=== PATIENT | female | born 1980 | race Caucasian/White ===

== ENCOUNTER 2025-02-04 13:08 | Outpatient (AMB) | payer OTHER, SELFPAY ==
--- NOTE | 2025-02-04 13:10 | MHC.PC.OV ---
Vital Signs 02/04/25 13:11 Height 5 ft 3 in Weight 103 lb 2 oz BMI 18.3 BP 124/80 Blood Pressure Location Lt brachial Position Sitting Respiration 16 Pulse 134 H Pulse Source Pulse Oximeter Temp 97.3 F Temp Source Temporal Artery Scan Pulse Oximetry (%) 97 Oxygen Delivery Method Room Air Intake Visit Reasons: annual exam - see comments Physical Geographer Required: No Accompanied by: Self / Same As Patient Allergies No Known Drug Allergies Allergy (Unknown, Verified 02/04/25 13:25) Unknown Medication List - Last Reconciled 02/04/25 by Jose Carlos Fragoso PA-C albuterol sulfate 1.25 mg/3ml inhaled every 6 hours PRN; 1.25 mg/3ml 30 days albuterol sulfate 90 mcg/actuation 2 puffs inhalation Q6H PRN buprenorphine-naloxone 8-2 mg 25 mg sublingual DAILY clonazepam 1 mg PO DAILY naloxone 4 mg/actuation intranasal DIRECTED nicotine 1 patch transdermal DAILY valacyclovir (Valtrex) 1,000 mg PO BID 7 days Tobacco use date assessed: 02/04/25 Dental Screening Dental Screen Date: 02/04/25 Did you have a dental visit in the last 12 months?: Yes Did you have a dental problem in the last 6 months where you did not have access to dental care?: No Was dental information given to patient?: Patient has dentist HPI annual exam - see comments HPI Details Patient is a 44-year-old female here today for routine annual physical Patient has a past medical history significant for tobacco use disorder, opiate dependence, COPD. .. Concern--> The patient reports joint pain that has been worsening over the past five years. 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 In her right hand, she has pain and swelling in two knuckles, which progresses to the point that she cannot close her hand by the end of a workday. She also has significant foot pain; a toe on one foot is bending over and rubbing, causing severe pain and purplish discoloration by the end of the day, to the point of needing to take time off from work. She uses ice for relief. .. Chronic constipation: The patient has a history of chronic constipation, which she believes is related to her Suboxone use, and for which she used milk of magnesia daily for about eight years. Her constipation has improved, and she now has a bowel movement every three days without using laxatives in the past month. She also reports significant unintentional weight loss, from 145-150 lbs down to a current weight of 103 lbs, which began during the stress of her parents' prolonged illness. She has a fear of overeating, leading her to eat small amounts and triggering nausea and vomiting if she feels she has eaten too much. .. Opiate dependence: Continues Subutex from a [place] [facility]. remains sober over the last 10 or so years.. .. Asthma: She reports her asthma is fairly stable with the use of albuterol nebulizer treatments on a p.r.n. basis along with a rescue inhaler as needed. She understands she needs to quit smoking in order to improve her asthma symptoms. She is now down to 8 cigarettes per day from 1 pack per day. . smoker: Have cut back on smoking ( report 10-15 cigs per day). She is interested in restarting nicotine replacement Colorectal cancer screening: willing to colonoscopy . DIRECTOR SUPPLY : Has upcoming appt With DIRECTOR SUPPLY Mammograms: needs mammo Vaccines: need Tdap, need flu vacc. Need PCV- declines all vaccines today [facility] Social History (Updated 02/04/25 @ 13:32 by Jose Carlos Fragoso PA-C) Housing: Apartment Alcohol intake: former Patient Tobacco Use Status: Current everyday Tobacco user Tobacco use type: Cigarette Cigarettes Per Day: 15 e-Cigarette/Vaping Use: Never Used service: No Current occupational status: employed Current occupation: House keeper e commerce marketing manager Cognitive needs: No Hearing needs: No Vision needs: No Questionnaire PHQ-9 Over the last 2 weeks, how often have you been bothered by any of the following problems? 1. Little interest or pleasure in doing things: several days 2. Feeling down, depressed, or hopeless: several days 3. Trouble falling or staying asleep, or sleeping too much: not at all 4. Feeling tired or having little energy: several days 5. Poor appetite or overeating: several days 6. Feeling bad about yourself - or that you are a failure or have let yourself or your family down: several days 7. Trouble concentrating on things, such as reading the newspaper or watching television: not at all 8. Moving or speaking so slowly that other people could have noticed. Or the opposite - being so fidgety or restless that you have been moving around a lot more than usual: not at all 9. Thoughts that you would be better off or of hurting yourself in some way: not at all Total score: 5 Depression Screening Interpretation: Positive Depression Screening Follow-up: Existing condition Depression Screening Done: Yes 29785 - PHQ-9 Billing: Patient declined-do not bill Source: Developed by Drs. Rico Mason, Kendra Bonilla, Fernie Rodriguez and colleagues, with an educational leslie from [employer] Thrive Questionnaire Date Thrive assessed: 05/04/24 I am a: Patient What is your living situation today?: I have a steady place to live Within the past 12 months, did the food you bought not last and you didn't have the money to get more?: Never true Within the past 12 months, did you worry whether your food would run out before you got money to buy more?: Sometimes True Do you have trouble paying for medicines?: No Do you have trouble getting transportation to medical appointments?: No Do you have trouble paying your heating and electricity bill?: Yes Do you have trouble taking care of your child, family member or friend?: No Do you have trouble with day-to-day activities such as bathing, preparing meals, shopping, managing finances, etc.?: No Are you currently unemployed and looking for a job?: No Are you interested in more education?: Yes Please select the resources that you would like help with: None Currently or been in a relationship where the following occur: No concerns reported THRIVE Score: 2 AUDIT C Alcohol Use Questionnaire (AUDIT-C) 1. How often do you have a drink containing alcohol?: Never 3. How often do you have six or more drinks on one occasion?: Never Total Score: 0 RISHABH-7 AMB Questionnaire RISHABH-7 Date RISHABH - 7 assessed: 06/26/21 Source: Developed by Drs. Rico Mason, Kendra Bonilla, Fernie Rodriguez and colleagues, with an educational leslie from [employer] Review of Systems Const Denies body aches, Denies chills, Denies excessive sweating, Denies fatigue, Denies fever(s) and Denies headache(s) Eyes Denies blurry vision ENT Denies dysphagia, Denies vertigo, Denies dizziness, Denies headache(s), Denies hearing loss and Denies tinnitus Card Denies chest pain, Denies chest pain with activity, Denies syncope, Denies irregular heart rhythm and Denies dyspnea Resp Denies chest congestion, Denies cough, Denies hemoptysis, Denies dyspnea and Denies wheezing GI Denies abdominal pain, Denies melena, Denies hematochezia, Denies coffee ground emesis, Denies dysphagia, Denies diarrhea, Denies nausea and Denies vomiting Denies urinary frequency, Denies dysuria, Denies urinary hesitancy and Denies urinary urgency Musc Denies arthralgias, Denies limited range of motion, Denies muscle cramps and Denies muscle weakness Skin/Breast Denies rash and Denies skin ulcer Neuro Denies Abnormal speech present, Denies confusion, Denies vertigo, Denies dizziness, Denies syncope, Denies headache(s), Denies memory loss and Denies seizure-like activity Psych Denies anxiety, Denies confusion, Denies depression, Denies memory loss, Denies panic attacks and Denies paranoia Endo Denies excessive sweating, Denies fatigue, Denies flushing, Denies polydipsia and Denies polyuria Aller/Immun Denies wheezing Physical exam (Primary Care) Vital Signs: Last Vital Signs Temp 97.3 F 02/04/25 13:11 Pulse 134 H 02/04/25 13:11 Resp 16 02/04/25 13:11 BP 124/80 02/04/25 13:11 Pulse Ox 97 02/04/25 13:11 Oxygen Delivery Method Room Air 02/04/25 13:11 BMI result Body Mass Index 18.3 Tobacco/Smoking Status: Tobacco use Status Tobacco use date assessed 02/04/25 02/04/25 13:19 Patient Tobacco Use Status Current everyday Tobacco 02/04/25 13:32 Tobacco use type Cigarette 02/04/25 13:32 e-Cigarette/Vaping Use Never Used 02/04/25 13:32 Are you ready to quit: Yes Tobacco cessation counseling provided: Yes Items discussed: Nicotine replacement Relapse Prevention: discussed the importance of a supportive environment, discussed negative mood or depression after quitting, weight gain after smoking is common and discussed dietary, exercise and/or lifestyle changes Number of minutes spent counselin CPT code: 18321 - 4-10 Minutes PHQ-9: PHQ-9 Score PHQ-9: Total score 5 02/04/25 14:06 Depression Screening Interpretation: Positive Depression Screening Follow-up: Existing condition Thrive Assessment: Date of Thrive Assessment Date Thrive assessed 05/04/24 02/04/25 13:19 Currently or been in a relationship where the following occur: No concerns reported Const Other: Appears thin General: cooperative, comfortable, no acute distress, alert and awake; No confusion Orientation/consciousness: oriented to person, oriented to place, patient oriented x3 and No confusion HENMT Head: Yes normocephalic Ears: external ears normal and TM's normal bilaterally Face and sinus: No sinus tenderness Mouth: Normal oral and palatal mucosa present and tongue normal Teeth and gingiva: dentition normal and gingiva normal Throat: Yes posterior oropharynx normal, Yes tonsils normal and Yes uvula midline Eyes Conjunctivae: conjunctivae normal Sclerae: sclerae normal Pupils: Equal, round and reactive pupils present EOM: EOMs intact bilaterally Direct Ophthalmoscopy: No no photophobia Neck Neck: Yes no lymphadenopathy, No tender and Yes no JVD Thyroid: Thyroid normal Carotids: no bruits Chest Chest palpation & inspection: no tenderness Resp Effort & Inspection: normal respiratory effort, no audible wheezes, not labored and no stridor Auscultation: no crackles, no rales, no rhonchi and no wheezes Cardio Jugular venous distension: no JVD Rate: regular rate, not bradycardic and not tachycardic Rhythm: regular rhythm Bruits: no carotid bruits Peripheral pulses: Peripheral pulses 2+ throughout GI Inspection: Yes normal to inspection, No abdominal wall ecchymosis and No visible herniation Palpation (GI): Soft to palpation, nontender, no guarding, not rigid and No hepatosplenomegaly present Auscultation: normoactive bowel sounds General: Yes no CVA tenderness Back/Spine/Pelvis Back: no CVA tenderness and No back tenderness Cervical Spine: cervical ROM normal Thoracic/Lumbar Spine: thoracic and lumbar spine normal to inspection, straight leg raise negative bilaterally, No thoraco-lumbar ROM limited and No lumbar spinal tenderness Skin Lesions: no lesions Rashes: no rashes Wounds: no wounds Neuro General: oriented to person, oriented to place, patient oriented x3, CN's II-XI intact bilaterally and No confusion Cranial nerves: Yes Equal, round and reactive pupils present and Yes Normal accommodation reflex present Cognition (Neuro): normal cognition Speech: No Abnormal speech present Gait exam (Neuro): Normal gait present Motor exam (neuro): 5/5 motor strength present throughout Extrem Right upper extremity: full ROM; no cyanosis Left upper extremity: full ROM; no cyanosis Right lower extremity: no edema Left lower extremity: no edema Psych Appearance: grossly normal Mental Status: mental status grossly normal Affect: normal affect Attitude: cooperative Thought process: Normal thought process present Coding Level of Care Code Est Pt Prev Care 40-64y([id number]) Diagnoses Annual physical exam Z00.00 H/O chronic hepatitis Z87.19 Uncomplicated opioid dependence F11.20 Substance use status: uncomplicated Screening for diabetes mellitus (DM) Z13.1 Left hand pain M79.642 Right hand pain M79.641 Foot callus L84 Screening mammogram, encounter for Z12.31 Weight loss R63.4 Smoker F17.200 Additional Codes Vital Signs *Quality* - CPT code: 73772 - 4-10 Minutes ([id number]) Assessment & Plan Assessment & Plan (1) Annual physical exam: Code(s): Z00.00 - Encounter for general adult medical examination without abnormal findings Category: Medical Plan: As per HPI (2) H/O chronic hepatitis: Code(s): Z87.19 - Personal history of other diseases of the digestive system Category: Medical Plan: Patient has a history of hepatitis-C that was treated many years ago, would like to recheck her viral load. (3) Opiate dependence: Code(s): F11.20 - Opioid dependence, uncomplicated Category: Medical Qualifiers: Substance use status: uncomplicated Qualified Code(s): F11.20 - Opioid dependence, uncomplicated Plan: Patient continues on Suboxone to a local Suboxone clinic. Has been sober from illicit opiates over the last 10 years. (4) Screening for diabetes mellitus (DM): Code(s): Z13.1 - Encounter for screening for diabetes mellitus Category: Medical Plan: As per HPI (5) Left hand pain: Code(s): M79.642 - Pain in left hand Category: Medical Plan: Regarding the patient's joint pain, an X-ray of her hand will be ordered to investigate the cause of her thumb and knuckle pain. A referral to Podiatry will be placed for evaluation of her foot pain. Blood work will be ordered to check for rheumatoid arthritis. The patient was advised of multiple treatment options, including OTC Voltaren cream, a possible prescription for an oral anti-inflammatory like meloxicam, referral to occupational therapy, and the possibility of a cortisone injection from a hand surgeon. (6) Right hand pain: Code(s): M79.641 - Pain in right hand Category: Medical Plan: As above (7) Foot callus: Code(s): L84 - Corns and callosities Category: Medical Plan: Patient appears to callus formation seen between the 1st and 2nd digit also has mild bunions. She would like to see a manufacturing manager for evaluation and treatment of her chronic for pains. (8) Screening mammogram, encounter for: Code(s): Z12.31 - Encounter for screening mammogram for malignant neoplasm of breast Category: Medical Plan: Needs mammogram (9) Weight loss: Code(s): R63.4 - Abnormal weight loss Category: Medical Plan: Will check some vitamin levels and a TSH to eval for any malnutrition. (10) Smoker: Code(s): F17.200 - Nicotine dependence, unspecified, uncomplicated Category: Social Hx Plan: For tobacco cessation, prescriptions for 14 mg and 7 mg nicotine patches will be sent to the pharmacy to allow for a step-down approach. Orders: Orders Complete Blood Count no Diff 02/04/25 Z13.1 - Encounter for screening for diabetes mellitus Rheumatoid Factor 02/04/25 M79.642 - Pain in left hand Cyclic Citrullinated Peptide 02/04/25 M79.642 - Pain in left hand Vitamin B12 and Folate 02/04/25 E53.8 - Deficiency of other specified B group vitamins, R63.4 - Abnormal weight loss Comprehensive [place]. Panel Fast 02/04/25 Z13.1 - Encounter for screening for diabetes mellitus XR hand LT 2V 02/04/25 M79.642 - Pain in left hand Erythrocyte Sedimentation Rate 02/04/25 M79.642 - Pain in left hand TSH reflex Free T4 02/04/25 R63.4 - Abnormal weight loss Vitamin D 25-OH Total 12/04/25 R63.4 - Abnormal weight loss IRON PROFILE 02/04/25 D50.9 - Iron deficiency anemia, unspecified, R63.4 - Abnormal weight loss Hepatitis C Viral Load 02/04/25 Z87.19 - Personal history of other diseases of the digestive system Magnesium 02/04/25 R63.4 - Abnormal weight loss MM screening mammo BI 02/04/25 Z12.31 - Encounter for screening mammogram for malignant neoplasm of breast Referrals Podiatry Referral L84 - Corns and callosities Medications: New meloxicam 15 mg PO DAILY 30 tabs 1RF 30 days M79.642 - Pain in left hand nicotine 1 patch transdermal DAILY 28 ea 0RF 28 days F17.200 - Nicotine dependence, unspecified, uncomplicated nicotine 1 patch transdermal Q24H 14 ea 0RF 14 days F17.200 - Nicotine dependence, unspecified, uncomplicated Refilled valacyclovir (Valtrex) 1,000 mg PO BID 14 tabs 0RF 7 days B00.9 - Herpesviral infection, unspecified Discontinued nicotine Discontinued Reason: Doctor's Order 1 patch transdermal DAILY 28 ea 1RF F17.200 - Nicotine dependence, unspecified, uncomplicated
[2025-02-04 13:11] VITALS: BP 124/80; PULSE 134; RESP 16; TEMP 36.3; O2SAT 97; BMI 18.3
== END 2025-02-04 14:05 | disposition home or self-care (01) ==
LOC: HO.HMCH 13:09
PROVIDERS: PCP Physician Assistant; Visit Provider Physician Assistant
DX: Z00.00 Encounter for general adult medical examination without abnormal findings (principal); Z87.19 Personal history of other diseases of the digestive system; F11.20 Opioid dependence, uncomplicated; Z13.1 Encounter for screening for diabetes mellitus; M79.642 Pain in left hand; M79.641 Pain in right hand; L84 Corns and callosities; Z12.31 Encounter for screening mammogram for malignant neoplasm of breast; R63.4 Abnormal weight loss; F17.200 Nicotine dependence, unspecified, uncomplicated